=== PATIENT | male | born 1945 | race Caucasian/White ===

== ENCOUNTER 2021-02-14 07:47 | Outpatient (REF) | payer MEDICARE, SELFPAY ==
[2021-02-14 08:40] LABS: COVID-19 Test Negative (Negative)
== END 2021-02-14 07:48 | disposition home or self-care (01) ==
LOC: HO.LAB 07:47
PROVIDERS: PCP Internal Medicine; Visit Provider Internal Medicine
DX: Z20.822 Contact with and (suspected) exposure to COVID-19 (principal)
CPT/HCPCS: 36415; 87635; C9803

== ENCOUNTER 2022-11-27 06:18 | Day surgery (SDC) | payer MEDICARE, SELFPAY ==
--- NOTE | 2022-11-26 08:57 | P.CONAN_ITS ---
Documented by User: Nadege Richards NP 11/26/22 08:57 HPI - Anesthesia Eval Consult details Narrative: 77yo M for Colonoscopy [facility] [place] Past Medical History Medical History Osteoarthritis GERD (gastroesophageal reflux disease) Elevated cholesterol HTN (hypertension) Peptic stricture of esophagus Goodman esophagus Surgical History Surgical History History of total right knee replacement Hx of arthroscopic knee surgery History of ankle surgery History of left nephrectomy Hx of colonoscopy Hx of esophagogastroduodenoscopy Social History Social History Advance Directives: No Advance Directives Information Provided: Yes Meds Allergies Allergy/AdvReac Type Severity Reaction Status Date / Time No Known Allergies Allergy Verified 11/26/22 06:46 Home Medications Medication Instructions Recorded Confirmed Last Taken Type amlodipine 5 mg tablet 5 mg PO DAILY 11/26/22 11/26/22 11/27/22 History atorvastatin 40 mg tablet 40 mg PO DAILY 11/26/22 11/26/22 Unknown History omeprazole 40 mg capsule,delayed 40 mg PO DAILY 11/26/22 11/26/22 11/27/22 History release Exam Exam Date and Time: November 26, 2022 0857 Assessment and Plan Assessment Anesthesia Assessment: Chart Reviewed Documented by User: Randi Torres MD 11/27/22 07:46 [facility] [place] Past Medical History Medical History Osteoarthritis GERD (gastroesophageal reflux disease) Elevated cholesterol HTN (hypertension) Peptic stricture of esophagus Goodman esophagus Surgical History Surgical History History of total right knee replacement Hx of arthroscopic knee surgery History of ankle surgery History of left nephrectomy Hx of colonoscopy Hx of esophagogastroduodenoscopy History of Problems with Anesthesia: No Social History Social History Advance Directives: No Advance Directives Information Provided: Yes Meds Allergies Allergy/AdvReac Type Severity Reaction Status Date / Time No Known Allergies Allergy Verified 11/26/22 06:46 Home Medications Medication Instructions Recorded Confirmed Last Taken Type amlodipine 5 mg tablet 5 mg PO DAILY 11/26/22 11/26/22 11/27/22 History atorvastatin 40 mg tablet 40 mg PO DAILY 11/26/22 11/26/22 Unknown History omeprazole 40 mg capsule,delayed 40 mg PO DAILY 11/26/22 11/26/22 11/27/22 History release Exam Airway Mallampati Class: III TM Dist: >3cm Loose/Missing/Broken Teeth: No Heart: RRR Lungs: CTA Assessment and Plan Assessment Anesthesia Assessment: Anesthesia Plan Discussed Final Anesthetic Review History of Problems with Anesthesia: No NPO: Yes ASA Class: II Final Preanesthetic Review: Meds/Allgs Chart Reviewed, Consent Obtained/Reviewed and Anes Risks/Benef Reviewed Patient Risk: Low Procedure Risk: Low Anesthetic Plan Anesthetic Plan: MAC: Disposition: Standard PACU
[2022-11-27 06:58] VITALS: BP 160/72; PULSE 62; RESP 18; TEMP 36.4; O2SAT 97
[2022-11-27 07:00] VITALS: BMI 25.8
[2022-11-27] MEDS: Lactated Ringers 1,000 ML 100 ML IVCONT (07:12)
--- NOTE | 2022-11-27 08:03 | MHC.SHP ---
Pre-Procedural Eval Section A Date of Service: 11/27/22 Section B Chief Complaint: Encounter for screening for malignant neoplasm Details of Present Illness: see H&P no changes Relevant Family History (Specify if Yes): No Relevant Social History: None Present Medications: see Short Stay Collaborative assessment Medical History: No relevant PMH Allergies: Allergies Allergy/AdvReac Type Severity Reaction Status Date / Time No Known Allergies Allergy Verified 11/26/22 06:46 Review of Systems Sugical H&P ROS: Negative: Constitution, Cardiovascular, Respiratory, Neurological, Psychiatric, Hem-Onc, Allergic/Immunologic, Gastrointestinal, Genitourinary, Musculoskeletal, Integumentary, Endocrine and Eyes/Ears/Nose/Throat Exam Surgical H&P Exam: Normal: HEENT, Normal: Heart, Normal: Lungs, Normal: Extremities, Normal: Abdomen, Normal: Skin and Normal: Neurological Plan Diagnosis/Plan: Unchanged I have reviewed the history and physical and performed a pertinent physical examination on my patient. No changes have occurred unless specified. Time Spent With Patient Time: Total time managing care of this patient today ____ minutes.
[2022-11-27 08:05] VITALS: BP 105/61; PULSE 58; RESP 18; TEMP 36.3; O2SAT 97
[2022-11-27 08:20] VITALS: BP 115/82; PULSE 66; RESP 16; TEMP 36.3; O2SAT 99
--- NOTE | 2022-11-27 08:21 | OP_ITS ---
DATE OF SERVICE: 11/27/2022 SURGEON: Ruddy Brown MD INDICATIONS: Colon cancer screening. PREOPERATIVE DIAGNOSIS: POSTOPERATIVE DIAGNOSIS: PROCEDURE PERFORMED: Colonoscopy to the terminal ileum with biopsy and snare polypectomy. ESTIMATED BLOOD LOSS: COMPLICATIONS: ANESTHESIA: Monitored anesthesia care. ASSISTANTS: SPECIMENS: DESCRIPTION OF PROCEDURE: A history and physical was performed, the risks and benefits of the procedure were explained to the patient. Informed consent was obtained. The patient was placed in the left lateral decubitus position. A digital rectal exam was performed and was found to be normal. The Olympus pediatric video colonoscope was introduced into the rectum and advanced to the cecum. The cecum was identified by transillumination, palpation, and identification of ileocecal valve. Examination was performed. The scope was removed. He tolerated the procedure well and was taken to recovery in stable condition. FINDINGS: The terminal ileum was examined and appeared normal. The visualized colonic mucosa was within normal limits without evidence of masses or ulcers. Two polyps were identified, 1 in the cecum measuring less than 5 mm was removed with biopsy forceps. A 2nd polyp in the right colon was removed with a snare. This measured approximately 6 mm and was recovered via suction. No other polyps were identified. The quality of the prep was good. There was moderate sigmoid diverticulosis. Retroflexed examination was remarkable for moderate-sized internal hemorrhoids. IMPRESSION: Colon polyps. RECOMMENDATIONS: Follow up with biopsy results. MD ADIS Ernst/ALEJO / [id number]
== END 2022-11-27 08:52 | disposition home or self-care (01) ==
PROVIDERS: PCP Internal Medicine; Visit Provider Internal Medicine Gastroenterology
PROC: 0DJD8ZZ Inspection of Lower Intestinal Tract, Via Natural or Artificial Opening Endoscopic (ICD-10-PCS; CPT 45378; principal; 2022-11-27 07:30)
DX: Z12.11 Encounter for screening for malignant neoplasm of colon (principal); Z86.010 Personal history of colon polyps; D12.0 Benign neoplasm of cecum; D12.4 Benign neoplasm of descending colon; K64.8 Other hemorrhoids; K21.9 Gastro-esophageal reflux disease without esophagitis; K22.70 Barrett's esophagus without dysplasia; I10 Essential (primary) hypertension; E78.5 Hyperlipidemia, unspecified; Z90.5 Acquired absence of kidney; Z79.899 Other long term (current) drug therapy
CPT/HCPCS: 45385; 45380; 88305